=== PATIENT | female | born 1995 | race African-American/Black ===

== ENCOUNTER 2019-12-03 16:03 | Emergency (ER) | payer OTHER, SELFPAY ==
[2019-12-03 16:11] VITALS: BP 152/77; PULSE 82; RESP 14; TEMP 36.6; O2SAT 100
--- NOTE | 2019-12-03 16:23 | ED.GENADULT ---
HPI - General Adult General Chief complaint: Wound/Laceration Stated complaint: fingers on right hand cuts Time Seen by Provider: 12/03/19 16:23 Source: patient and RN notes reviewed Mode of arrival: ambulatory Limitations: no limitations History of Present Illness HPI narrative: 24-year-old -[place] female present with complaints of lacerations to 1st, 2nd, and 3rd fingers on right hand, caused by lid of a can (of black beans) while opening it approximately 15 minutes ago. Denies focal weakness, altered sensation, rash, fever or chills, or nausea or vomiting and abdominal pain. Denies pain, numbness or tingling, or loss of mobility. No foreign body sensation. Right hand is dominant hand. Tetanus up-to-date. Remains active. Alfonso denies being , LMP 11/05/19 and on Implanon. Denies diarrhea. Tolerating po intake well. Denies headaches, weakness, fatigue, myalgia. Denies chest pain or dyspnea. Denies cough, rhinorrhea, congestion, and sore throat. Denies recent traveling. Denies concern for COVID-19 or exposures been home since [id number] order except for essential household needs, work, and return home. Some parts of this dictation were generated by voice recognition software and may contain typographical and/or grammatical inaccuracies Related Data Home Medications Medication Instructions Recorded Confirmed etonogestrel 1 implant SUBDERMAL ONCE 12/03/19 12/03/19 Allergies Allergy/AdvReac Type Severity Reaction Status Date / Time No Known Allergies Allergy Verified 12/03/19 16:19 Review of Systems Review of Systems: Narrative: CONSTITUTIONAL: Denies fever, chills, sweats. EYES: Denies visual changes, redness, discharge. ENT: Denies rhinorrhea, congestion, sore throat, otalgia. CARDIOVASCULAR: Denies chest pain, palpitations, edema. RESPIRATORY: Denies dyspnea, wheezing, cough. GASTROINTESTINAL: Denies abdominal pain, nausea, vomiting, or diarrhea. GENITOURINARY: Denies dysuria, hematuria, abnormal discharge. SKIN: Denies rash or itching. Complains of lacerations to RT hand 1st, 2nd, and 3rd fingers. No active bleeding. MUSCULOSKELETAL: Denies acute back pain, joint pain, or myalgia. NEUROLOGIC: Denies numbness or focal weakness. PSYCHIATRIC: Denies anxiety or depression. PMFSH Past Medical History Medical History (Updated 12/03/19 @ 17:30 by BLAYNE Hill) No significant medical problems Surgical History Surgical History (Updated 12/03/19 @ 17:30 by BLAYNE Hill) No significant past surgical history Family History Family History (Updated 12/03/19 @ 17:29 by BLAYNE Hill) Mother Hypertension Social History Social History (Updated 12/03/19 @ 17:25 by BLAYNE Hill) Smoking status: Never smoker Second hand tobacco smoke exposure: Yes Alcohol intake: current Substance use: never Living arrangements: with family Occupation/Education: occupation Gender identity (if verbalized by the patient): Female Comments At time of signature, agree with nurse past medical, surgical, social, and family history. There is no relevant family history pertinent to the presenting complaint. Exam Narrative: Exam Narrative: GENERAL: This is a well-nourished, well-developed patient, in no apparent distress. HEAD: normocephalic, atraumatic. CARDIOVASCULAR: Regular rate and rhythm without murmurs, gallops, or rubs. RESPIRATORY: Clear to auscultation. Breath sounds equal bilaterally. No wheezes, rales, or rhonchi. GASTROINTESTINAL: Abdomen soft, non-tender, nondistended. Bowel sounds are active. No hepato-splenomegaly, or palpable masses. No guarding. SKIN: warm, RT hand 1st finger (thumb) medial-palm 3 cm liner-irregular laceration (DIP area), 2nd finger (index) palm avulsion (DIP area), and 3rd finger (middle) (DIP area)dorsal 0.5cm superficial liner laceration, no evidence of foreign body, tendon injury or neurovascular injury, scant bloody drai
[2019-12-03 17:25] VITALS: BP 122/90
== END 2019-12-03 17:25 | disposition home or self-care (01) ==
PROVIDERS: Emergency Provider Nurse Practitioner Family
DX: S61.011A Laceration without foreign body of right thumb without damage to nail, initial encounter (principal); W26.8XXA Contact with other sharp object(s), not elsewhere classified, initial encounter
CPT/HCPCS: 12002; 99212; G0463